=== PATIENT | male | born 1965 | race African-American/Black ===

== ENCOUNTER 2020-06-08 13:22 | Emergency (ER) | payer OTHER ==
[~2020-06-08] VITALS: Ht 190.5 cm; Wt 86.2 kg
[2020-06-08 13:30] VITALS: BP 120/97
[2020-06-08] MEDS ORDERED: NEOMYCIN-BACITRACIN-POLYM UNITDOSE PKG TOP OINT TOP ONE (15:45)
[2020-06-08] MEDS ORDERED: LIDOCAINE W/ EPINEPHRINE 2% INJ 20ML VIAL ID ONE (15:45)
[2020-06-08] MEDS ORDERED: LIDOCAINE W/ EPINEPHRINE 1% 20ML VIAL ONE (16:11)
[2020-06-08] MEDS ORDERED: IBUPROFEN 800 MG TAB PO ONE (16:45)
== END 2020-06-08 16:37 | disposition home or self-care (01) ==
LOC: ER 13:22
DX: S01.511A Laceration without foreign body of lip, initial encounter (principal); X58.XXXA Exposure to other specified factors, initial encounter; Y93.89 Activity, other specified; Y92.89 Other specified places as the place of occurrence of the external cause; Y99.8 Other external cause status
CPT/HCPCS: 12011